=== PATIENT | male | born 1985 | race Caucasian/White ===

== ENCOUNTER 2025-04-15 11:32 | Emergency (ER) | payer SELFPAY ==
[2025-04-15] VITALS (11 sets, daily range): BP systolic 148–224; BP diastolic 82–144; PULSE 78–107; RESP 17–19; TEMP 36.7; O2SAT 93–99; BMI 31.4
--- NOTE | 2025-04-15 11:37 | ECG_ITS ---
[employer] Test Date: 2025-04-15 Pat Name: Gunnar Sarkar Department: Room: Gender: Male [employer]: : 1985 Requested By: Fede García Order Number: [id number] Reading MD: BHARAT JAFFE Measurements Intervals [place] Rate: 108 P: 28 IA: 136 QRS: -30 QRSD: 89 T: 130 QT: 362 QTc: 486 Interpretive Statements SINUS TACHYCARDIA POSSIBLE LEFT ATRIAL ENLARGEMENT [-0.1mV P-WAVE IN V1/V2] BORDERLINE LEFT AXIS DEVIATION [QRS AXIS < -20] POSSIBLE RIGHT VENTRICULAR CONDUCTION DELAY [RSR (QR) IN V1/V2] LEFT VENTRICULAR HYPERTROPHY AND ST-T CHANGE [VOLTAGE CRITERIA PLUS ST/T ABNORMALITY] No previous ECG available for comparison Electronically Signed On 04-15-2025 23:27:46 CDT by BHARAT JAFFE [email or web address]
--- NOTE | 2025-04-15 12:31 | ED_ITS ---
HPI - Chest Pain 2 General: Chief Complaint: Chest Pain Stated Complaint: cp Time Seen by Provider: 04/15/25 12:12 History of Present Illness: 39-year-old male presents emergency room with complaint of chest pain for the last 2 months. Patient has had a bit of a mucousy productive cough occasionally he has seen some streaks of blood and has been intermittent. He does not localize the pain he denies any pain associated with exertion he does relate pain is worse when he lays down. No fever sweats or chills. No previous history of coronary artery disease or arrhythmias Associated symptoms: Deny abdominal pain, dyspnea or fever(s) Related Data Previous Rx's ?Medication ?Instructions ?Recorded aspirin 81 mg tablet,delayed 81 mg PO DAILY #30 tabs 0 04/15/25 release metoprolol succinate 25 mg 25 mg PO DAILY #30 tabs tablet,extended release 24 hr (Toprol XL) pantoprazole 40 mg tablet,delayed 40 mg PO QAM #30 tab s 04/15/25 release (Protonix) Allergies Allergy/AdvReac Type Severity Reaction Status Date / Time No Known Allergies Allergy Verified 04/15/25 11:44 Review of Systems 2 Const: Denies: fever(s) or chills Card: Denies: chest pain Resp: Denies: dyspnea, productive cough, wheezing or chest congestion GI: Denies: abdominal pain : Denies: dysuria, urinary frequency or urinary urgency Musc: Denies: neck pain or back pain Skin/Breast: Denies: rash Physical Exam 2 Const: GENERAL APPEARANCE: cooperative ORIENTATION/CONSCIOUSNESS: Yes awake, Yes oriented to person, Yes oriented to place and Yes oriented to time HENMT: COMMON NORMALS: normocephalic, atraumatic and hearing grossly normal bilaterally HEAD & SCALP: normocephalic and atraumatic Resp: COMMON NORMALS: normal respiratory effort, No retractions, No use of accessory muscles and clear to auscultation bilaterally AUSCULTATION: clear to auscultation bilaterally Cardio: COMMON NORMALS: regular rate, regular rhythm and No murmurs present (Cardio) RATE: regular rate RHYTHM: regular rhythm GI: COMMON NORMALS: Soft to palpation and No hepatosplenomegaly present A USCULTATION: Yes normoactive bowel sounds PALPATION: Yes Soft to palpation, No Tenderness to palpation present (GI), No Guarding due to palpation present (GI) and Yes No hepatosplenomegaly present Extremity: COMMON NORMALS: normal to inspection, capillary refill normal, no clubbing, cyanosis or edema, no calf tenderness and no pedal edema Neuro: SENSORIUM/ORIENTATION: Yes oriented to person, Yes oriented to place and Yes oriented to time Skin: COMMON NORMALS: no rashes or lesions noted GENERAL SKIN EXAM: no rashes or lesions noted Course 2 Vital Signs: Vital signs: Vital Signs Temperature 98.1 F 04/15/25 11:41 Pulse Rate 95 04/15/25 16:26 Respiratory Rate 17 04/15/25 15:32 Blood Pressure 148/92 04/15/25 16:26 Pulse Oximetry 95 04/15/25 16:26 Oxygen Delivery Me thod Room Air 04/15/25 13:31 MDM - Chest Pain Medical Decision Making CTA of the chest negative for acute PE. There are some changes suggestive of mild bronchitis. Lungs actually clear at this time is not really having any wheezing. EKGs did not show any acute changes. Reviewed as found on the chart. Blood pressure is elevated will start on aspirin and metoprolol. Also add pantoprazole. Set up for outpatient stress testing and follow-up with primary care doc. Lab Data 04/15/25 12:19 04/15/25 12:19 Radiology Impressions Chest X-Ray 04/15/25 12:44 IMPRESSION: No acute intrathoracic findings. Chest CTA 04/15/25 12:45 IMPRESSION: 1. No pulmonary emboli. 2. Mild bronchial wall thickening suggestive of bronchitis or edema. 3. Mediastinal and bilateral hilar lymphadenopathy, likely reactive or inflammatory. Laboratory Results WBC 9.63 10^3/uL (3.29-11.43) 04/15/25 12:19 RBC 4.91 10^6/uL (3.85-5.65) 04/15/25 12:19 Hgb 14.20 g/dL (11.27-16.99) 04/15/25 12:19 Hct 41.0 % (37-53) 04/15/25 12:19 MCV 83.5 fl (82-101) 04/15/25 12:19 MCH 28.9 pg (27-33) 04/15/25 12:19 MCHC 34.6 g/dL (30-55) 04/15/25 12:19 RDW 13.6 % (12.1-15.1) 04/15/25 12:19 Plt Count 214 10^3/cmm (157-399) 04/15/25 12:19 MPV 10.9 fL (7.4-10.4) H 04/15/25 12:19 Neut % (Auto) 67.3 % 04/15/25 12:19 Lymph % (Auto) 23.2 % 04/15/25 12:19 [place] % (Auto) 7.7 % 04/15/25 12:19 Eos % (Auto) 0.6 % 04/15/25 12:19 Baso % (Auto) 0.6 % 04/15/25 12:19 Neut # (Auto) 6.48 10^3/uL (1.8-7.7) 04/15/25 12:19 Lymph # (Auto) 2.2 10^3/uL (0.8-4.8) 04/15/25 12:19 [place] # (Auto) 0.7 10^3/uL (0.2-0.9) 04/15/25 12:19 Eos # (Auto) 0.1 10^3/uL (0.0-0.8) 04/15/25 12:19 Baso # (Auto) 0.1 10^3/uL (0.0-0.1) 04/15/25 12:19 Nucleated RBC % (auto) 0 % 04/15/25 12:19 Nucleated RBCs # 0.0 /100WBC 04/15/25 12:19 Sodium 139 mmol/L (136-145) 04/15/25 12:19 Potassium 3.3 mmol/L (3.5-5.1) L 04/15/25 12:19 Chloride 101 mmol/L (98-107) 04/15/25 12:19 Carbon Dioxide 25 mmol/L (22-29) 04/15/25 12:19 Anion Gap 16.3 (5-19) 04/15/25 12:19 BUN 16 mg/dL (6-20) 04/15/25 12:19 Creatinine 1.0 mg/dL (0.7-1.2) 04/15/25 12:19 GFR Calculation 83.2 mL/min (90-130) L 04/15/25 12:19 Glucose 176 mg/dL (65-115) H 04/15/25 12:19 Calculated Osmolality 293 mOsm/kg (285-295) 04/15/25 12:19 Calcium 9.2 mg/dL (8.5-10.5) 04/15/25 12:19 Total Bilirubin 0.5 mg/dL (0.15-1.2) 04/15/25 12:19 AST 17 U/L (0-40) 04/15/25 12:19 ALT 19 U/L (0-41) 04/15/25 12:19 Alkaline Phosphatase 110 U/L (40-130) 04/15/25 12:19 Troponin T Baseline 85 ng/L (0-15) H 04/15/25 12:19 Troponin T 120 Minute 78.04 ng/L (0-15) H 04/15/25 13:58 Delta Troponin T -6.96 ABS# (0-10) L 04/15/25 13:58 Total Protein 6.4 g/dL (6.6-8.7) L 04/15/25 12:19 Albumin 4.2 g/dL (3.5-5.2) 04/15/25 12:19 Globulin 2.2 g/dL (1.3-4.6) 04/15/25 12:19 Urine Color Yellow (Yellow) 04/15/25 12:55 Urine Appearance Clear (CLEAR) 04/15/25 12:55 Urine pH 7.0 (5-7) 04/15/25 12:55 Ur Specific [place] 1.008 (1.005-1.030) 04/15/25 12:55 Urine Protein Trace (Negative) A 04/15/25 12:55 Urine Glucose (UA) Trace (Normal) H 04/15/25 12:55 Urine Ketones Negative (Negative) 04/15/25 12:55 Urine Blood Negative (Negative) 04/15/25 12:55 Urine Nitrate Negative (Negative) 04/15/25 12:55 Urine Bilirubin Negative (Negative) 04/15/25 12:55 Urine Urobilinogen 0.2 mg/dL (Negative) 04/15/25 12:55 Ur Leukocyte Esterase Negative (Negative) 04/15/25 12:55 Urine RBC 0-2 /hpf (0-2) 04/15/25 12:55 Urine WBC 0-5 /hpf (0-5) 04/15/25 12:55 Ur Squamous Epith Cells 0-5 /hpf (0-5) 04/15/25 12:55 Amorphous Sediment Not Reportable 04/15/25 12:55 Urine Bacteria None seen /hpf (NONE) 04/15/25 12:55 Hyaline Casts 0-4 /lpf H 04/15/25 12:55 All radiology interpretation(s) finalized by discharge Discharge Plan Discharge Patient Disposition: Home Clinical Impression: Atypical chest pain, GERD (gastroesophageal reflux disease), Hypertension Condition: Stable Prescriptions: New pantoprazole [Protonix] 40 mg tablet,delayed release (DR/EC) 40 mg PO QAM Qty: 30 0RF aspirin 81 mg tablet,delayed release (DR/EC) 81 mg PO DAILY Qty: 30 0RF metoprolol succinate [Toprol XL] 25 mg tablet extended release 24 hr 25 mg PO DAILY Qty: 30 0RF Discharge Orders: Discharge ED (Routine); Ordered 04/15/25 Ordered By: Fede Tai Patient Instructions: Diet for Stomach Ulcers and Gastritis (ED), GERD (Gastroesophageal Reflux Disease) (ED), Opioid Safety, Pain Management Activity Restrictions/Additional Instructions: Thank you for choosing [facility] for your healthcare needs today. It is very important that you follow up as instructed or that you return to the Emergency Department should you have concerns or if your condition changes or worsens in any way. You were seen in the emergency room for complaints of chest pain that been going on for [address] of your chest was negative your cardiac enzymes trended negative your EKG does not show any acute changes. Recommend you start Protonix 40 mg once a day additionally recommend a baby aspirin daily will set you up for an outpatient stress test to complete the evaluation of your heart. manager scheduling will call contact you to make an appointment. Print Language: Indonesian Coding Level of Care Code ED Dramatic Critic for Barb Villagomez
--- NOTE | 2025-04-15 12:44 | XRR_ITS ---
PROCEDURE INFORMATION: Exam: XR Chest Exam date and time: 04/15/2025 12:46 PM Age: 39 years old Clinical indication: Pain; Angina pectoris; Additional info: Chest pain TECHNIQUE: Imaging protocol: Radiologic exam of the chest. Views: 1 view. COMPARISON: No relevant prior studies available. FINDINGS: Lungs: No consolidation. Pleural spaces: No sizable pleural effusion or pneumothorax. Heart/Mediastinum: No cardiomegaly. Bones/joints: Unremarkable. XR/XR chest 1V portable [id number] IMPRESSION: No acute intrathoracic findings.
--- NOTE | 2025-04-15 12:45 | CTR_ITS ---
PROCEDURE INFORMATION: Exam: CTA Chest With Contrast Exam date and time: 04/15/2025 1:15 PM Age: 39 years old Clinical indication: Shortness of breath; Additional info: Hemoptysis TECHNIQUE: Imaging protocol: Computed tomographic angiography of the chest with contrast. Exam focused on the arteries. 3D rendering (Not supervised by radiologist): MIP and/or 3D reconstructed images were created by the technologist. Radiation optimization: All CT scans at this facility use at least one of these dose optimization techniques: automated exposure control; mA and/or kV adjustment per patient size (includes targeted exams where dose is matched to clinical indication); or iterative reconstruction. Contrast material: OMNI 350; Contrast volume: 100 ml; Contrast route: INTRAVENOUS (IV); COMPARISON: CR XR chest 1V portable [id number] 04/15/2025 12:46 PM RADIATION DOSE METRICS: Total DLP (mGy-cm): 402.39 FINDINGS: Pulmonary arteries: Normal. No pulmonary emboli. Aorta: Unremarkable. No aortic aneurysm. No aortic dissection. Lungs: Diffuse mild bronchial wall thickening. No consolidation. No masses. Pleural spaces: Unremarkable. No pneumothorax. No pleural effusion. Heart: Unremarkable. No cardiomegaly. No pericardial effusion. Lymph nodes: Mediastinal and bilateral hilar lymphadenopathy including reference subcarinal lymph node measuring 2.2 cm in short axis, and right hilar lymph node measuring 1.8 cm in short axis. Bones/joints: Unremarkable. No acute fracture. Soft tissues: Unremarkable. CT/CT angio chest PE protcl [id number] IMPRESSION: 1. No pulmonary emboli. 2. Mild bronchial wall thickening suggestive of bronchitis or edema. 3. Mediastinal and bilateral hilar lymphadenopathy, likely reactive or inflammatory.
[2025-04-15 12:48] LABS: Basophils # 0.1 10^3/uL (0.0-0.1); Basophils % 0.6 %; Eosinophils # 0.1 10^3/uL (0.0-0.8); Eosinophils % 0.6 %; Lymphocytes # 2.2 10^3/uL (0.8-4.8); Lymphocytes % 23.2 %; Mean Corpuscular HGB Conc 34.6 g/dL (30-55); Mean Corpuscular Hemoglobin 28.9 pg (27-33); Mean Corpuscular Volume 83.5 fl (82-101); Mean Platelet Volume 10.9 fL (7.4-10.4); Monocytes # 0.7 10^3/uL (0.2-0.9); Monocytes % 7.7 %; Neutrophils # 6.48 10^3/uL (1.8-7.7); Neutrophils % 67.3 %; Nucleated Red Blood Cells % 0 %; Platelet Count 214 10^3/cmm (157-399); Red Blood Count 4.91 10^6/uL (3.85-5.65); Red Cell Distribution Width 13.6 % (12.1-15.1); White Blood Count 9.63 10^3/uL (3.29-11.43)
[2025-04-15 13:04] LABS: Bilirubin Urine Negative (Negative); Blood Urine Negative (Negative); Glucose Urine UA Trace (Normal); Ketones Urine Negative (Negative); Leukocyte Esterase Urine Negative (Negative); Nitrate Urine Negative (Negative); Protein Urine Trace (Negative); Specific Gravity, Urine 1.008 (1.005-1.030); Urine Appearance Clear (CLEAR); Urine Color Yellow (Yellow); Urobilinogen Urine 0.2 mg/dL (Negative)
[2025-04-15 13:09] LABS: Add Urine Microscopic? YES; Bacteria Urine None Seen /hpf; Hyaline Casts Urine 0-4 /lpf; RBC Urine 0-2 /hpf (0-2); Squamous Epithelial Cell Urine 0-5 /hpf (0-5); WBC Urine 0-5 /hpf (0-5)
[2025-04-15 13:14] LABS: Troponin(5th) Baseline 85 ng/L (0-15)
[2025-04-15 13:17] LABS: Alanine Aminotransferase 19 U/L (0-41); Albumin Level 4.2 g/dL (3.5-5.2); Alkaline Phosphatase 110 U/L (40-130); Anion Gap 16.3 (5-19); Aspartate Amino Transferase 17 U/L (0-40); Blood Urea Nitrogen 16 mg/dL (6-20); Calcium 9.2 mg/dL (8.5-10.5); Carbon Dioxide 25 mmol/L (22-29); Chloride 101 mmol/L (98-107); Creatinine Clr Calc Pharmacy 103.3292; Globulin 2.2 g/dL (1.3-4.6); Glomerular Filtration Rate 83.2 mL/min (90-130); Glucose 176 mg/dL (65-115); Osmolality Calculated 293 mOsm/kg (285-295); Potassium 3.3 mmol/L (3.5-5.1); Sodium 139 mmol/L (136-145); Total Bilirubin 0.5 mg/dL (0.15-1.2); Total Protein 6.4 g/dL (6.6-8.7)
[2025-04-15 13:20] LABS: Add Urine Culture? No
[2025-04-15] MEDS: iohexol 350 mg/mL 500 mL Btl (per mL) IV (13:24)
[2025-04-15] MEDS: hyDRALAzine 20 mg/mL INJ 1 mL 10 MG IVP ×2 (13:28→14:47)
[2025-04-15] MEDS: labetalol 5 mg/mL SDV 20mL 10 MG IVP ×2 (13:28→15:13)
[2025-04-15 14:23] LABS: Troponin 5 2HR 78.04 ng/L (0-15)
[2025-04-15 14:27] LABS: Troponin 5 2HR Delta -6.96 ABS# (0-10)
--- NOTE | 2025-04-15 14:42 | ECG_ITS ---
[employer] Date: 2025-04-15 Pat Name: Gunnar Sarkar Department: Room: Gender: Male [employer] Runner: : 1985 Requested By: Fede García Order Number: [id number] Kath MD: BHARAT JAFFE Measurements Intervals [place] Rate: 101 P: 50 MA: 185 QRS: -27 QRSD: 94 T: 228 QT: 404 QTc: 525 Interpretive Statements SINUS TACHYCARDIA LEFT ATRIAL ENLARGEMENT [-0.15mV P-WAVE IN V1/V2] BORDERLINE LEFT AXIS DEVIATION [QRS AXIS < -20] POSSIBLE RIGHT VENTRICULAR CONDUCTION DELAY [RSR (QR) IN V1/V2] ST DEVIATION AND MARKED T-WAVE ABNORMALITY, CONSIDER LATERAL ISCHEMIA [-0.5+ mV T-WAVE IN I/aVL/V5/V6] ST DEVIATION AND MODERATE T-WAVE ABNORMALITY, CONSIDER INFERIOR ISCHEMIA [-0.1+ mV T-WAVE IN II/aVF] Compared to ECG 04/15/2025 11:39:56 T-wave abnormality now present Electronically Signed On 04-15-2025 23:37:19 CDT by BHARAT JAFFE [id number]
--- NOTE | 2025-04-27 12:07 | DCPLANNER ---
Out patient request sent to centralized scheduling for exercised stress test.
== END 2025-04-15 16:27 | disposition home or self-care (01) ==
PROVIDERS: Emergency Provider Family Medicine
DX: R07.89 Other chest pain (principal); K21.9 Gastro-esophageal reflux disease without esophagitis; I10 Essential (primary) hypertension
CPT/HCPCS: 36415; 71045; 71275; 80053; 81001; 84484; 85025; 93005; 96374; 96375; 96376; 99285; J0360; J3490